=== PATIENT | female | born 1955 | race Caucasian/White ===

== ENCOUNTER → 2019-10-10 11:10 | Outpatient (CLI) | payer MEDICARE, OTHER, SELFPAY ==
--- NOTE | ~2019-10-10 | MM_ITS ---
EXAMINATION: MM screening wong BI w siri HISTORY: Screening mammogram TECHNIQUE: Craniocaudal and mediolateral oblique 3-D tomosynthesis images were obtained and synthetic 2-D images were generated. CAD analysis was submitted and interpreted. COMPARISON: 09/06/2018, 07/06/2017, 06/16/2016 bilateral digital screening mammogram examinations BREAST PARENCHYMAL COMPOSITION: There are scattered areas of fibroglandular density. FINDINGS: There is no evidence of suspicious mass, calcification, or architectural distortion to sugg est malignancy in either breast. There has been no suspicious interval change. IMPRESSION: 1. No mammographic evidence of malignancy. 2. Recommend routine screening mammography in one year. BI-RADS Category 1: Negative Reviewed, dictated and finalized at location A. 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
== END ==
PROVIDERS: PCP Family Medicine; Visit Provider Physician Assistant
DX: Z12.31 Encounter for screening mammogram for malignant neoplasm of breast (principal)
CPT/HCPCS: 77063; 77067

== ENCOUNTER → 2020-12-24 12:21 | Outpatient (CLI) | payer MEDICARE, SELFPAY ==
--- NOTE | ~2020-12-24 | MM_ITS ---
EXAMINATION: MM screening wong BI w siri HISTORY: Screening TECHNIQUE: Craniocaudal and mediolateral oblique 3-D tomosynthesis images were obtained and synthetic 2-D images were generated. CAD analysis was submitted and interpreted. COMPARISON: Comparison to multiple prior studies sequentially, with oldest reviewed study dated 09/2014. BREAST PARENCHYMAL COMPOSITION: The breasts are heterogenously dense, which may obscure small masses. FINDINGS: There is no evidence of suspicious mass, calcification, or architectural distortion to sugg est malignancy in either breast. There has been no suspicious interval change. IMPRESSION: 1. No mammographic evidence of malignancy. 2. Recommend routine screening mammography in one year. BI-RADS Category 1: Negative Reviewed, dictated and finalized at location A.
--- NOTE | ~2020-12-24 | XR_ITS ---
XR chest 2V DATE: 12/24/2020 13:58 INDICATION: Cough TECHNIQUE: PA and lateral views COMPARISON: None FINDINGS: Heart size is normal. No hilar or mediastinal enlargement. Moderate bilateral hyperinflation. No pulmonary infiltrate or consolidation, pleural effusion or pulm onary vascular congestion or pneumothorax is evident. Diffuse osteopenia. Degenerative spurring of the thoracic spine. IMPRESSION: Moderate bilateral hyperinflation Reviewed, dictated and finalized at location A.
--- NOTE | ~2020-12-24 | DEXA_ITS ---
Bone Density Report Name: Sabine Osullivan Age: 65 Sex: Female Ethnicity: White Date of : 1955 Indication: postmenopausal osteoporosis; height loss; hysterectomy; Referring Provider: LAURIE PANIAGUA Study: Bone densitometry was performed. Exam Date: December 24, 2020 Accession number: [id number] Bone Density: Region BMD T-score Z-score Classification AP Spine (L1, L3, L4) 1.011 -0.4 1.6 Normal Femoral Neck (Left) 0.480 -3.3 -1.7 Osteoporosis Total Hip (Left) 0.597 -2.8 -1.4 Osteoporosis Femoral Neck (Right) 0.433 -3.7 -2.1 Osteoporosis Total Hip (Right) 0.594 -2.9 -1.5 Osteoporosis Total Hip Mean 0.596 -2.9 -1.5 Osteoporosis World Health Organization criteria for BMD impression classify patients as: Normal (T-score at or above -1.0), Osteopenia (T-score between -1.0 and -2.5), or Osteoporosis (T-score at or below -2.5). 10-year Fracture Risk: FRAX not reported because: Some T-score for Spine Total or Hip Total or Femoral Neck at or below -2.5 Previous Exams: Region Exam Age BMD T-score BMD Change BMD Change Date g/cm2 vs Baseline vs Previous AP Spine(L1, L3, L4) 12/24/2020 65 1.011 -0.4 0.137* -0.010 06/11/2015 60 1.022 -0.3 0.148* 0.148* 05/29/2008 53 0.874 -1.6 Total Hip(Left) 12/24/2020 65 0.597 -2.8 -0.061* -0.041* 06/11/2015 60 0.638 -2.5 -0.020 -0.020 05/29/2008 53 0.658 -2.3 Total Hip(Right) 12/24/2020 65 0.594 -2.9 -0.063* -0.008 06/11/2015 60 0.602 -2.8 -0.055* -0.055* 05/29/2008 53 0.657 -2.3 *Denotes significance at 95% confidence level, LSC for AP Spine = 0.022 g/cm2, LSC for Total Hip = 0.027 g/cm2 Clinical Information Provided by Patient: Has used the following medications: Calcium, calcium includes vit D, MTV Has the following medical conditions: Hysterectomy Patient maximum height was 59 Menopause Age: 26 Does not regularly consume dairy products Onset of menses at age 12 Number of children 1 Impression: The patient has osteoporosis, based on the Right Femoral Neck T-score. The BMD for the Total Hip(Left) decreased, changing by -0.041 since the last DXA exam. Discussion: HIGH RISK OF FRACTURE. BONE DENSITY IS UNDESIRABLY LOW AT ONE OR MORE SKELETAL SITES, CONSISTENT WITH OSTEOPOROSIS. ALSO, BONE DENSITY IS LOWER THAN EXPECTED FOR AGE AND SEX AT ONE OR MORE SKELETAL SITES; RECOMMEND A DILIGENT
== END ==
PROVIDERS: PCP Family Medicine; Visit Provider Family Medicine
DX: Z12.31 Encounter for screening mammogram for malignant neoplasm of breast (principal); Z78.0 Asymptomatic menopausal state; R05 Cough; M81.0 Age-related osteoporosis without current pathological fracture; R91.8 Other nonspecific abnormal finding of lung field
CPT/HCPCS: 71046; 77063; 77067; 77080

== ENCOUNTER 2020-12-26 11:51 | Outpatient (CLI) | payer MEDICARE, SELFPAY ==
[2020-12-26 12:07] LABS: Basophils Absolute Auto 0.1 K/mm3 (0.0-0.1); Basophils Percent Auto 0.7 % (0.2-1.2); Eosinophils Absolute Auto 0.2 K/mm3 (0-0.3); Eosinophils Percent Auto 1.8 % (0-4.4); Hematocrit 31.9 % (37.0-47.0); Immature Granulocyte Absolute 0.04 K/mm3 (0.00-0.031); Immature Granulocyte Percent A 0.4 % (0-0.5); Lymphocytes Absolute Auto 1.71 K/mm3 (0.9-3.2); Lymphocytes Percent Auto 17.8 % (18.3-44.2); Mean Corpuscular HGB Conc 28.2 g/dl (32-36); Mean Corpuscular Hemoglobin 19.7 pg (26-34); Mean Corpuscular Volume 69.7 fl (80-100); Mean Platelet Volume 9.9 fl (7.4-10.4); Monocytes Absolute Auto 0.5 K/mm3 (0.1-0.6); Monocytes Percent Auto 5.1 % (2.6-8.5); Neutrophils Absolute Auto 7.2 K/mm3 (1.3-6.7); Neutrophils Percent Auto 74.2 % (45.5-73.1); Platelet Count Result 679 k/mm3 (150-375); Red Blood Count 4.58 M/mm3 (4.2-5.4); White Blood Count 9.6 K/mm3 (4.5-10.0)
[2020-12-26 12:24] LABS: Platelet Estimate Increased (Adequate)
[2020-12-26 12:25] LABS: Hypochromasia 1+ (NORMAL); Ovalocytes 1+ (NORMAL); Poikilocytosis 1+ (NORMAL)
[2020-12-26 16:46] LABS: Iron 37 ug/dL (37-170)
[2020-12-26 16:48] LABS: Alanine Aminotransferase 13 U/L (4-35); Albumin Level 4.4 g/dL (3.5-5.1); Alkaline Phosphatase 79 U/L (38-126); Anion Gap 7 mmol/L (8-16); Aspartate Amino Transferase 29 U/L (14-36); Bilirubin,Total 0.4 mg/dL (0.2-1.3); Blood Urea Nitrogen 10 mg/dL (7-17); Calcium 10.1 mg/dL (8.4-10.2); Carbon Dioxide 26 mmol/L (22-30); Chloride 110 mmol/L (98-107); Estimated Glomerular Filt Rate > 60; Glucose 97 mg/dL (65-105); Potassium 4.8 mmol/L (3.4-5.0); Sodium 143 mmol/L (137-145)
[2020-12-26 16:57] LABS: Percent Iron Saturation 7 % (20-50)
[2020-12-26 17:22] LABS: Ferritin 6.83 ng/mL (11.1-264)
[2020-12-26 18:00] LABS: Folic Acid 11.6 ng/mL (2.76->20)
== END 2020-12-26 11:52 | disposition home or self-care (01) ==
PROVIDERS: PCP Family Medicine; Visit Provider Internal Medicine Hematology & Oncology
DX: D50.9 Iron deficiency anemia, unspecified (principal)
CPT/HCPCS: 36415; 80053; 82607; 82728; 82746; 83540; 83550; 85025

== ENCOUNTER 2020-12-31 13:57 | Outpatient (CLI) | payer MEDICARE, SELFPAY ==
--- NOTE | ~2020-12-31 | CT_ITS ---
EXAMINATION: CT abdomen pelvis w con DATE: 12/31/2020 14:36 INDICATION: Anemia. Abdomen pain. TECHNIQUE: Computed tomography (CT) of the abdomen and pelvis was performed with 90 cc Omnipaque 350 intravenous contrast. The dose-length product was 158.80 mGy-cm. Automated exposure control and itera tive reconstruction technique were employed. COMPARISON: None. FINDINGS: Lung bases are unremarkable. Heart size normal. No significant pleural or pericardial effus ion. There is atherosclerosis of the aorta without aneurysm. Small hiatal hernia. No lymphadenopathy. There are small bilateral renal cysts. The liver, spleen, pancreas, adrenal glands are unremarkable. Nonobstructive bowel gas pattern. Gallbladder is present. No free air or free fluid. Severe lumbar s pondylosis. Scoliosis. No acute osseous abnormality. IMPRESSION: 1. No acute abdominal abnormality. Reviewed, dictated and finalized at location A.
== END 2020-12-31 13:58 | disposition home or self-care (01) ==
PROVIDERS: PCP Family Medicine; Visit Provider Internal Medicine Hematology & Oncology
DX: D50.9 Iron deficiency anemia, unspecified (principal); R10.30 Lower abdominal pain, unspecified; K44.9 Diaphragmatic hernia without obstruction or gangrene; N28.1 Cyst of kidney, acquired; M47.816 Spondylosis without myelopathy or radiculopathy, lumbar region
CPT/HCPCS: 74177; Q9967

== ENCOUNTER 2021-02-04 00:45 | Day surgery (SDC) | payer MEDICARE, SELFPAY ==
[2021-01-18 13:56] VITALS: BMI 20.1
[2021-02-04 08:54] VITALS: BP 131/56; PULSE 56; RESP 18; TEMP 36.3; O2SAT 99
[2021-02-04] MEDS: LACTATED RINGERS 1,000 ML 150 ML IV CONT (09:10)
--- NOTE | 2021-02-04 09:11 | WPDANESEPPF ---
Anes - Initial Pre Proc Eval Procedure: Operation Date: 02/04/21 09:30 Proposed Procedures p Esophagogastroduodenoscopy & Colonoscopy - Abebe Hernandez MD Date/Time: 02/04/21 09:11 Surgeon: Abebe Hernandez MD Pre Op Diagnosis: dysphagia, Iron Def anemia Patient Data Age: 65 Gender: F Height: 1.45 m Weight: 41.2 kg Last Vital Signs Temp 97.4 F L 02/04/21 08:54 Pulse 56 L 02/04/21 08:54 Resp 18 02/04/21 08:54 BP 131/56 L 02/04/21 08:54 Pulse Ox 99 02/04/21 08:54 Allergies Allergy/AdvReac Type Severity Reaction Status Date / Time lisinopril Allergy Unknown cough Verified 02/04/21 08:53 rosuvastatin Allergy Unknown leg pain Verified 02/04/21 08:53 Home Medications Medication Instructions Recorded Confirmed Type naproxen 500 mg tablet See Rx Instructions .ROUTE 11/07/19 01/18/21 Rx .COMPLEX #60 tablet ergocalciferol (vitamin D2) 1,250 1,250 mcg PO WEEKLY #12 cap 12/06/20 01/18/21 Rx mcg (50,000 unit) capsule atorvastatin 10 mg tablet See Rx Instructions .ROUTE 12/17/20 01/18/21 Rx .COMPLEX #90 tablet hydrochlorothiazide 25 mg tablet See Rx Instructions .ROUTE 12/17/20 01/18/21 Rx .COMPLEX #90 tablet linaclotide 145 mcg capsule 145 mcg PO DAILY #90 cap 12/17/20 01/18/21 Rx metoprolol succinate 50 mg See Rx Instructions .ROUTE 12/17/20 01/18/21 Rx tablet,extended release 24 hr .COMPLEX #90 tablet omeprazole 20 mg capsule,delayed See Rx Instructions .ROUTE 12/17/20 01/18/21 Rx release .COMPLEX #90 cap tramadol 50 mg tablet 50 mg PO Q6H PRN #90 tablet 12/17/20 01/18/21 Rx trazodone 100 mg tablet See Rx Instructions .ROUTE 12/17/20 01/18/21 Rx .COMPLEX #135 tablet cyclobenzaprine 10 mg tablet 10 mg PO TID #60 tablet 01/15/21 01/18/21 Rx alendronate [Fosamax] 70 mg PO WEEKLY 01/18/21 01/18/21 History sertraline [Zoloft] 150 mg .ROUTE .COMPLEX 01/18/21 01/18/21 History Patient hx anesthesia problems: none Family hx anesthesia problems: none [facility] Past Medical History Medical History Depression HLD (hyperlipidemia) Hypertension IBS (irritable bowel syndrome) Normal colonoscopy (~2018) Surgical History Surgical History H/O: hysterectomy Family History Family History Father Hypertension Family history of diabetes mellitus in first degree relative Family history of hearing loss Patient's father is Mother Hypertension Patient's mother is Grandparent Asthma Sibling Patient's sister is in good health Patient's brother is in good health Other Cerebrovascular accident Family history of cardiovascular disease Family history of seizure disorder Social History Social History Second hand tobacco smoke exposure: No Alcohol intake: never Substance use type: does not use Living arrangements: with family Gender identity (if verbalized by the patient): Female Anes - Eval Final PreProcedure Day of Procedure 02/04/21 09:11 Patient weight: normal Heart: regular rate and rhythm Lungs: clear to auscultation Airway: Mallampati scale class II Neurological: alert and oriented Last oral intake: >/= 8 hours ASA classification: III Emergent: no Anesthetic plan: proceed Anesthesia type and monitoring: general GIVS and standard monitoring Informed Consent: The patient's anesthetic plan and its attendant risks and benefits were discussed with the patient/family/POA. Questions were solicited and answers provided to the satisfaction of the patient/family/POA.
--- NOTE | 2021-02-04 09:17 | WPDGICN ---
Assessment and Plan Assessment and plan (1) ROLANDO (iron deficiency anemia): Code(s): D50.9 - Iron deficiency anemia, unspecified Status: Acute Assessment and Plan: Patient has iron deficient anemia. Etiology unclear. She is currently followed by hematology service. Plan is to proceed with colonoscopy an EGD to assess for possible GI blood loss. Stool Hemoccult should be obtained if not already accomplished. It is possible that ppi therapy can contribute to iron malabsorption. (2) Dysphagia: Code(s): R13.10 - Dysphagia, unspecified Status: Acute Assessment and Plan: Patient reports difficulty swallowing. She does have a history of esophageal web 3-4 years ago. Plan is to assess with follow-up EGD at this time. (3) Epigastric abdominal pain: Code(s): R10.13 - Epigastric pain Status: Acute Assessment and Plan: Patient has epigastric and mid abdominal pain. Currently on omeprazole 20 mg p.o. daily. She continues to have discomfort. Plan is to evaluate with EGD and colonoscopy. Consider increasing dose of PPI therapy antrum. GI Consult Note Consult date/time: 02/04/21 09:17 HPI: Sabine Osullivan is a 65 year old female Presents for GI endoscopy. Patient recently found to have iron deficiency anemia. She was referred to Hematology who has recommended both colonoscopy an EGD. Patient reports difficulty swallowing with large pieces of food catching at throat. Patient has a history 3 years ago of having had esophageal web requiring dilatation. She currently takes omeprazole daily. However despite this medication continues to have burning epigastric discomfort. She states she has discomfort the middle portion of her abdomen. Over the last 6 months she states she may have lost 17 lb. But has begun to gain weight and has gained 7 lb over recent months. Patient states that her bowel habits are normal. She denies any obvious signs of GI blood loss. She has had no change in the color of her stools. She has no had no bleeding elsewhere. She has had no nose bleeds. No other bruising. Her family history is noncontributory. Review of Systems Review of Systems: All systems reviewed & are unremarkable except as noted in HPI and below PMFSH Past Medical History Medical History Depression HLD (hyperlipidemia) Hypertension IBS (irritable bowel syndrome) Normal colonoscopy (~2018) Surgical History Surgical History H/O: hysterectomy Family History Family History Father Hypertension Family history of diabetes mellitus in first degree relative Family history of hearing loss Patient's father is Mother Hypertension Patient's mother is Grandparent Asthma Sibling Patient's sister is in good health Patient's brother is in good health Other Cerebrovascular accident Family history of cardiovascular disease Family history of seizure disorder Social History Social History Second hand tobacco smoke exposure: No Alcohol intake: never Substance use type: does not use Living arrangements: with family Gender identity (if verbalized by the patient): Female Meds Home Medications and Allergies Home Medications Medication Instructions Recorded Confirmed Type naproxen 500 mg tablet See Rx Instructions .ROUTE 11/07/19 01/18/21 Rx .COMPLEX #60 tablet ergocalciferol (vitamin D2) 1,250 1,250 mcg PO WEEKLY #12 cap 12/06/20 01/18/21 Rx mcg (50,000 unit) capsule atorvastatin 10 mg tablet See Rx Instructions .ROUTE 12/17/20 01/18/21 Rx .COMPLEX #90 tablet hydrochlorothiazide 25 mg tablet See Rx Instructions .ROUTE 12/17/20 01/18/21 Rx .COMPLEX #90 tablet linaclotide 14
[2021-02-04] MEDS: BENZOCAINE (*SP) 60 ML SPRAY CAN (HURRICAINE) 1 SPRAY MUCOUS MEM (09:41)
[2021-02-04 10:13] VITALS: BP 98/49; PULSE 63; RESP 16; O2SAT 98
[2021-02-04 10:23] VITALS: BP 112/69; PULSE 63; RESP 24; O2SAT 100
[2021-02-04 10:33] VITALS: BP 123/67; PULSE 59; RESP 17; O2SAT 100
== END 2021-02-04 10:49 | disposition home or self-care (01) ==
PROVIDERS: PCP Family Medicine; Visit Provider Internal Medicine Gastroenterology
PROC: 0DJ08ZZ Inspection of Upper Intestinal Tract, Via Natural or Artificial Opening Endoscopic (ICD-10-PCS; CPT 43235; principal; 2021-02-04 09:30)
DX: D50.9 Iron deficiency anemia, unspecified (principal); R13.19 Other dysphagia; R10.13 Epigastric pain; K44.9 Diaphragmatic hernia without obstruction or gangrene; K22.2 Esophageal obstruction; K21.00 Gastro-esophageal reflux disease with esophagitis, without bleeding; F32.9 Major depressive disorder, single episode, unspecified; E78.5 Hyperlipidemia, unspecified; I10 Essential (primary) hypertension; K58.9 Irritable bowel syndrome, unspecified
CPT/HCPCS: 45378; 43450; J2704; J7120

== ENCOUNTER 2022-05-05 13:50 | Outpatient (CLI) | payer MEDICARE, SELFPAY ==
[2022-05-05 14:19] LABS: Hematocrit 32.2 % (37.0-47.0); Hemoglobin 9.1 g/dL (12.0-15.0); Mean Corpuscular HGB Conc 28.3 g/dl (32-36); Mean Corpuscular Hemoglobin 20.9 pg (26-34); Mean Platelet Volume 9.5 fl (7.4-10.4); Platelet Count Result 627 k/mm3 (150-375); Red Blood Count 4.35 M/mm3 (4.2-5.4); Red Cell Distribution Width 19.5 % (11.5-14.5); White Blood Count 9.1 K/mm3 (4.5-10.0)
[2022-05-05 16:35] LABS: Iron 22 ug/dL (37-170)
[2022-05-05 16:48] LABS: Percent Iron Saturation 4 % (20-50)
[2022-05-05 17:15] LABS: Ferritin 6.67 ng/mL (11.1-264)
== END 2022-05-05 13:51 | disposition home or self-care (01) ==
LOC: ANHLAB 13:52
PROVIDERS: PCP Family Medicine; Visit Provider Internal Medicine Hematology & Oncology
DX: D50.9 Iron deficiency anemia, unspecified (principal)
CPT/HCPCS: 36415; 82607; 82728; 83540; 83550; 85027

== ENCOUNTER → 2022-05-12 11:47 | Outpatient (CLI) | payer MEDICARE, SELFPAY ==
--- NOTE | ~2022-05-12 | MM_ITS ---
EXAMINATION: MM screening [facility] BI w siri HISTORY: Screening mammogram TECHNIQUE: Craniocaudal and mediolateral oblique 3-D tomosynthesis images were obtained and synthetic 2-D images were generated. CAD analysis was submitted and interpreted. COMPARISON: 12/24/2020, 10/10/2019, 08/29/2018 BREAST PARENCHYMAL COMPOSITION: There are scattered areas of fibroglandular density. FINDINGS: There is no suspicious mass, calcification, or architectural distortion to suggest malignan cy in either breast. There has been no suspicious interval change. IMPRESSION: 1. No mammographic evidence of malignancy. 2. Recommend routine screening mammography in one year. BI-RADS Category 1: Negative Reviewed, dictated and finalized at location A.
== END ==
PROVIDERS: PCP Family Medicine; Visit Provider Family Medicine
DX: Z12.31 Encounter for screening mammogram for malignant neoplasm of breast (principal)
CPT/HCPCS: 77063; 77067

== ENCOUNTER 2023-06-24 13:33 | Outpatient (CLI) | payer MEDICARE, SELFPAY ==
[2023-06-24 13:58] LABS: Basophils Absolute Auto 0.1 K/mm3 (0.0-0.1); Basophils Percent Auto 0.7 % (0.2-1.2); Eosinophils Absolute Auto 0.1 K/mm3 (0-0.3); Eosinophils Percent Auto 1.2 % (0-4.4); Hematocrit 35.6 % (37.0-47.0); Hemoglobin 11.5 g/dL (12.0-15.0); Immature Granulocyte Absolute 0.04 K/mm3 (0.00-0.031); Immature Granulocyte Percent A 0.4 % (0-0.5); Lymphocytes Absolute Auto 1.99 K/mm3 (0.9-3.2); Mean Corpuscular HGB Conc 32.3 g/dl (32-36); Mean Corpuscular Hemoglobin 28.9 pg (26-34); Mean Corpuscular Volume 89.4 fl (80-100); Mean Platelet Volume 9.3 fl (7.4-10.4); Monocytes Absolute Auto 0.5 K/mm3 (0.1-0.6); Monocytes Percent Auto 5.3 % (2.6-8.5); Neutrophils Absolute Auto 6.4 K/mm3 (1.3-6.7); Neutrophils Percent Auto 70.4 % (45.5-73.1); Platelet Count Result 596 k/mm3 (150-375); Red Blood Count 3.98 M/mm3 (4.2-5.4); Red Cell Distribution Width 15.5 % (11.5-14.5); White Blood Count 9.1 K/mm3 (4.5-10.0)
[2023-06-24 14:03] LABS: Blood Urea Nitrogen 17 mg/dL (8-26); Carbon Dioxide 24 mmol/L (22-30); Chloride 106 mmol/L (98-109); Estimated Glomerular Filt Rate 14; Glucose 114 mg/dL (70-105); Ionized Calcium (POC) 1.17 mmol/L (1.11-1.31); Sodium 139 mmol/L (138-146)
[2023-06-24 16:45] LABS: Alanine Aminotransferase 13 U/L (6-35); Albumin Level 4.5 g/dL (3.5-5.1); Alkaline Phosphatase 92 U/L (38-126); Anion Gap 15 mmol/L (8-16); Aspartate Amino Transferase 25 U/L (14-36); Bilirubin,Total 0.6 mg/dL (0.2-1.3); Blood Urea Nitrogen 14 mg/dL (7-17); Calcium 10.5 mg/dL (8.4-10.2); Carbon Dioxide 24 mmol/L (22-30); Chloride 103 mmol/L (98-107); Cholesterol 212 mg/dL (0-200); Estimated Glomerular Filt Rate > 60; Glucose 99 mg/dL (65-110); HDL Direct 52 mg/dL; Potassium 4.5 mmol/L (3.4-5.0); Sodium 142 mmol/L (137-145); Triglycerides 161 mg/dL (<150)
[2023-06-24 16:56] LABS: LDL Cholesterol Direct 102 mg/dL
[2023-06-24 17:04] LABS: Hemoglobin A1C 5.3 % (<5.7)
== END 2023-06-24 13:34 | disposition home or self-care (01) ==
LOC: ANHLAB 13:36
PROVIDERS: PCP Family Medicine; Visit Provider Internal Medicine Hematology & Oncology
DX: R73.9 Hyperglycemia, unspecified (principal); E78.2 Mixed hyperlipidemia; R53.83 Other fatigue; I10 Essential (primary) hypertension
CPT/HCPCS: 36415; 80047; 80053; 80061; 83036; 84443; 85025

== ENCOUNTER 2023-06-29 10:31 | Outpatient (CLI) | payer MEDICARE, SELFPAY ==
[2023-06-29 11:28] LABS: Parathyroid Intact 28.6 pg/mL (7.5-53.5)
[2023-07-01 15:56] LABS: Ionized Calcium 5.1 mg/dL (4.7-5.5)
== END 2023-06-29 10:32 | disposition home or self-care (01) ==
PROVIDERS: PCP Family Medicine; Visit Provider Physician Assistant
DX: E83.52 Hypercalcemia (principal)
CPT/HCPCS: 36415; 82330; 83970

== ENCOUNTER → 2023-10-08 12:28 | Outpatient (CLI) | payer MEDICARE, SELFPAY ==
--- NOTE | ~2023-10-08 | MM_ITS ---
EXAMINATION: MM screening wong BI w siri HISTORY: Screening TECHNIQUE: Craniocaudal and mediolateral oblique 3-D tomosynthesis images were obtained and synthetic 2-D images were generated. CAD analysis was submitted and interpreted. COMPARISON: Comparison to multiple prior studies sequentially, with oldest reviewed study dated 02/2016. BREAST PARENCHYMAL COMPOSITION: Dense: The breasts are heterogeneously dense, which may obscure small masses FINDINGS: There is no evidence of suspicious mass, calcification, or architectural distortion to sugg est malignancy in either breast. There has been no suspicious interval change. IMPRESSION: 1. No mammographic evidence of malignancy. 2. Recommend routine screening mammography in one year. BI-RADS Category 1: Negative Reviewed, dictated and finalized at location A. BUSHELER
== END ==
PROVIDERS: PCP Internal Medicine Hematology & Oncology; Visit Provider Family Medicine
DX: Z12.31 Encounter for screening mammogram for malignant neoplasm of breast (principal)
CPT/HCPCS: 77063; 77067

== ENCOUNTER 2023-12-11 12:44 | Outpatient (CLI) | payer MEDICARE, SELFPAY ==
--- NOTE | ~2023-12-11 | US_ITS ---
US renal BI 12/11/2023 13:12 Procedure: Realtime transabdominal ultrasound of the kidneys and bladder. Indication: Chronic kidney disease stage III Comparison: No prior studies for comparison. Findings: Renal echotexture is normal bilaterally without hydronephrosis, contour deforming mass or r enal calculus. The right kidney measures 8.5 cm and left kidney measures 8.7 cm. Bladder within norm al limits. Impression: 1: Unremarkable renal ultrasound. No stones, masses or hydronephrosis. Reviewed, dictated and finalized at location B. Impression: 1: Unremarkable renal ultrasound. No stones, masses or hydronephrosis.
== END 2023-12-11 12:45 ==
LOC: MICIMG 12:45
PROVIDERS: PCP Family Medicine; Visit Provider Family Medicine
DX: N18.30 Chronic kidney disease, stage 3 unspecified (principal)
CPT/HCPCS: 76775

== ENCOUNTER 2024-01-29 10:07 | Outpatient (CLI) | payer MEDICARE, SELFPAY ==
[2024-01-29 10:19] LABS: Basophils Absolute Auto 0.1 K/mm3 (0.0-0.1); Eosinophils Absolute Auto 0.1 K/mm3 (0-0.3); Hematocrit 38.1 % (37.0-47.0); Hemoglobin 12.1 g/dL (12.0-15.0); Immature Granulocyte Absolute 0.02 K/mm3 (0.00-0.031); Immature Granulocyte Percent A 0.4 % (0-0.5); Lymphocytes Absolute Auto 1.69 K/mm3 (0.9-3.2); Lymphocytes Percent Auto 33.9 % (18.3-44.2); Mean Corpuscular HGB Conc 31.8 g/dl (32-36); Mean Corpuscular Hemoglobin 28.4 pg (26-34); Mean Corpuscular Volume 89.4 fl (80-100); Mean Platelet Volume 9.4 fl (7.4-10.4); Monocytes Absolute Auto 0.3 K/mm3 (0.1-0.6); Monocytes Percent Auto 6.4 % (2.6-8.5); Neutrophils Absolute Auto 2.9 K/mm3 (1.3-6.7); Neutrophils Percent Auto 57.3 % (45.5-73.1); Platelet Count Result 479 k/mm3 (150-375); Red Blood Count 4.26 M/mm3 (4.2-5.4); Red Cell Distribution Width 16.4 % (11.5-14.5)
[2024-01-29 10:28] LABS: Blood Urea Nitrogen 28 mg/dL (8-26); Carbon Dioxide 25 mmol/L (22-30); Chloride 106 mmol/L (98-109); Estimated Glomerular Filt Rate 7; Glucose 134 mg/dL (70-105); Ionized Calcium (POC) 1.25 mmol/L (1.11-1.31); Potassium 3.7 mmol/L (3.5-4.9); Sodium 140 mmol/L (138-146)
[2024-01-29 13:42] LABS: Anion Gap 10 mmol/L (4-12); Blood Urea Nitrogen 28 mg/dL (7-17); Carbon Dioxide 22 mmol/L (22-30); Chloride 107 mmol/L (98-107); Estimated Glomerular Filt Rate 55; Glucose 96 mg/dL (65-110); Potassium 3.6 mmol/L (3.4-5.0); Sodium 139 mmol/L (137-145)
== END 2024-01-29 10:08 | disposition home or self-care (01) ==
LOC: ANHLAB 10:10
PROVIDERS: PCP Family Medicine; Visit Provider Internal Medicine Hematology & Oncology
DX: D47.3 Essential (hemorrhagic) thrombocythemia (principal)
CPT/HCPCS: 36415; 80047; 80048; 85025

== ENCOUNTER 2024-02-26 11:23 | Outpatient (CLI) | payer MEDICARE, SELFPAY ==
--- NOTE | ~2024-02-26 | XR_ITS ---
XR shoulder LT min 2V 02/26/2024 12:02 INDICATION: Left shoulder pain PROCEDURE: 4 views left shoulder COMPARISON: No prior studies for comparison. FINDINGS: Fracture, dislocation or subluxation is not identified. Osteopenia. The soft tissues appear within normal limits. No foreign bodies are identified. IMPRESSION: 1: NO ACUTE BONE OR JOINT ABNORMALITY IDENTIFIED. Reviewed, dictated and finalized at location B.
== END 2024-02-26 11:24 ==
PROVIDERS: PCP Family Medicine; Visit Provider Family Medicine
DX: M25.512 Pain in left shoulder (principal)
CPT/HCPCS: 73030

== ENCOUNTER 2024-06-03 08:46 | Outpatient (CLI) | payer MEDICARE, SELFPAY ==
[2024-06-03 09:01] LABS: Basophils Absolute Auto 0.1 K/mm3 (0.0-0.1); Basophils Percent Auto 1.6 % (0.2-1.2); Eosinophils Absolute Auto 0.1 K/mm3 (0-0.3); Hematocrit 30.3 % (37.0-47.0); Hemoglobin 8.8 g/dL (12.0-15.0); Immature Granulocyte Absolute 0.01 K/mm3 (0.00-0.031); Immature Granulocyte Percent A 0.2 % (0-0.5); Lymphocytes Absolute Auto 1.72 K/mm3 (0.9-3.2); Lymphocytes Percent Auto 31.3 % (18.3-44.2); Mean Corpuscular Hemoglobin 24.6 pg (26-34); Mean Corpuscular Volume 84.9 fl (80-100); Mean Platelet Volume 9.1 fl (7.4-10.4); Monocytes Absolute Auto 0.4 K/mm3 (0.1-0.6); Monocytes Percent Auto 7.8 % (2.6-8.5); Neutrophils Absolute Auto 3.1 K/mm3 (1.3-6.7); Neutrophils Percent Auto 57.1 % (45.5-73.1); Platelet Count Result 190 k/mm3 (150-375); Red Blood Count 3.57 M/mm3 (4.2-5.4); Red Cell Distribution Width 19.2 % (11.5-14.5); White Blood Count 5.5 K/mm3 (4.5-10.0)
[2024-06-03 09:06] LABS: Blood Urea Nitrogen 16 mg/dL (8-26); Carbon Dioxide 25 mmol/L (22-30); Chloride 106 mmol/L (98-109); Estimated Glomerular Filt Rate 8; Glucose 123 mg/dL (70-105); Ionized Calcium (POC) 1.24 mmol/L (1.11-1.31); Potassium 4.3 mmol/L (3.5-4.9); Sodium 142 mmol/L (138-146)
[2024-06-03 09:09] LABS: Anisocytosis 1+; Hypochromasia 1+; Microcytosis 1+ (NORMAL); Platelet Estimate Adequate (Adequate); Schistocytes None Seen
[2024-06-03 13:35] LABS: Iron 25 ug/dL (37-170)
[2024-06-03 13:45] LABS: Percent Iron Saturation 5 % (20-50)
[2024-06-03 14:12] LABS: Ferritin 6.63 ng/mL (11.1-264)
== END 2024-06-03 08:47 | disposition home or self-care (01) ==
PROVIDERS: PCP Family Medicine; Visit Provider Internal Medicine Hematology & Oncology
DX: D64.9 Anemia, unspecified (principal); D47.3 Essential (hemorrhagic) thrombocythemia
CPT/HCPCS: 36415; 80047; 82607; 82728; 83540; 83550; 85025

== ENCOUNTER 2024-06-24 12:59 | Outpatient (CLI) | payer MEDICARE, SELFPAY ==
[2024-06-24 13:10] LABS: Basophils Absolute Auto 0.1 K/mm3 (0.0-0.1); Basophils Percent Auto 1.2 % (0.2-1.2); Eosinophils Absolute Auto 0.1 K/mm3 (0-0.3); Hematocrit 30.4 % (37.0-47.0); Hemoglobin 8.6 g/dL (12.0-15.0); Immature Granulocyte Absolute 0.01 K/mm3 (0.00-0.031); Immature Granulocyte Percent A 0.2 % (0-0.5); Lymphocytes Percent Auto 27.6 % (18.3-44.2); Mean Corpuscular HGB Conc 28.3 g/dl (32-36); Mean Corpuscular Hemoglobin 23.4 pg (26-34); Mean Corpuscular Volume 82.8 fl (80-100); Mean Platelet Volume 8.4 fl (7.4-10.4); Monocytes Absolute Auto 0.5 K/mm3 (0.1-0.6); Monocytes Percent Auto 8.9 % (2.6-8.5); Neutrophils Absolute Auto 3.1 K/mm3 (1.3-6.7); Neutrophils Percent Auto 61.1 % (45.5-73.1); Platelet Count Result 413 k/mm3 (150-375); Red Blood Count 3.67 M/mm3 (4.2-5.4); Red Cell Distribution Width 19.9 % (11.5-14.5); White Blood Count 5.1 K/mm3 (4.5-10.0)
[2024-06-24 13:13] LABS: Platelet Estimate Increased (Adequate)
[2024-06-24 13:14] LABS: Anisocytosis 1+; Hypochromasia 1+; Microcytosis 1+ (NORMAL); Ovalocytes 1+; Poikilocytosis 1+; Schistocytes None Seen
== END 2024-06-24 13:00 | disposition home or self-care (01) ==
LOC: ANHLAB 13:00
PROVIDERS: PCP Family Medicine; Visit Provider Internal Medicine Hematology & Oncology
DX: D64.9 Anemia, unspecified (principal)
CPT/HCPCS: 36415; 85025

== ENCOUNTER 2025-02-17 13:28 | Outpatient (CLI) | payer MEDICARE, SELFPAY ==
--- NOTE | ~2025-02-17 | MM_ITS ---
EXAMINATION: MM screening wong BI w siri HISTORY: Screening TECHNIQUE: Craniocaudal and mediolateral oblique 3-D tomosynthesis images were obtained and synthetic 2-D images were generated. CAD analysis was submitted and interpreted. COMPARISON: Comparison to multiple prior studies sequentially, with oldest reviewed study dated 06/11. BREAST PARENCHYMAL COMPOSITION: Not dense: There are scattered areas of fibroglandular density. FINDINGS: There is no evidence of suspicious mass, calcification, or architectural distortion to sugg est malignancy in either breast. There has been no suspicious interval change. IMPRESSION: 1. No mammographic evidence of malignancy. 2. Recommend routine screening mammography in one year. BI-RADS Category 1: Negative Reviewed, dictated and finalized at location B.
== END 2025-02-17 13:29 | disposition home or self-care (01) ==
LOC: MICIMG 13:28
PROVIDERS: PCP Family Medicine; Visit Provider Family Medicine
DX: Z12.31 Encounter for screening mammogram for malignant neoplasm of breast (principal)
CPT/HCPCS: 77063; 77067

== ENCOUNTER 2025-04-21 12:45 | Outpatient (CLI) | payer MEDICARE, SELFPAY ==
--- OUTSIDE RECORDS SUMMARY | 2025-04-21 13:26 | XMS_ITS | Clinical Summary ---
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 This disclosure is being madepursuant to the Care Everywhere program and may not contain all information available regarding this patient. Last updated 18.[facility] Allergies Active Allergy Reactions Criticality Noted Date Comments Hydrocodone-Acetaminophen Nausea and/or Vomiting 03/10/2024 Oxycodone Nausea and/or Vomiting 03/10/2024 Medications * Be aware that medications may not be up to date on this document. Alwaysverify current medications with the patient. acetaminophen (Tylenol) 500 MG tablet Take 1 (one) tablet by mouth every 4 hours as needed for Fever or Pain Maximum allowable Acetaminophen amount = 4 Grams (4000 mg) / 24 hours. 20 tablet 4 Active ibuprofen (Motrin) 600 MG tablet Take 1 (one) tablet by mouth every 6 hours as needed for Pain 30 tablet 4 Active Social History Tobacco Use Types Packs/Day Years Used Date Smoking Tobacco: Never Assessed Comments Unknown Sex and Gender Information Value Date Recorded Sex Assigned at Not on file Legal Sex Female 7:33 PM CDT Gender Identity Not on file Sexual Orientation Not on file Last Filed Vital Signs Vital Sign Reading Time Taken Comments Blood Pressure 132/68 03/11/2024 7:00 AM CDT Pulse 80 03/11/2024 7:00 AM CDT Temperature 36.8 C (98.2 F) 03/10/2024 7:47 PM CDT Respiratory Rate 15 03/11/2024 7:00 AM CDT Oxygen Saturation 94% 03/11/2024 7:00 AM CDT Inhaled Oxygen Concentration - - Weight - - Height - - Body Mass Index - - Plan of Treatment Health Maintenance Due Date Last Done Comments BONE DENSITY TESTING 1955 COLOGUARD (AGES 45-75) - COL ON CA SCREENING 1955 COLON MONITORING 1955 COLONOSCOPY - COLON CA SCREENING 1955 CT COLONOGRAPHY - COLON CA SCREENING 1955 Colorectal Cancer Screening 1955 FIT - COLON CA SCREENING 1955 FLEX SIG - COLON CA SCREENING 1955 LIPID TESTING 1955 HEPATITIS C SCREENING 02/18/1971 DTAP/TDAP/TD VACCINES (1 - Tdap) 02/23/1972 PNEUMOCOCCAL VACCINE 50+ (1 of 1 - PCV) 2003 ZOSTER VACCINE (1 of 2) 2003 COVID-19 VACCINE (1 - 2023-2 5 season) 2024 DEPRESSION SCREENING 08/10/2024 MEDICARE AWV CALENDAR YEAR 2024 INFLUENZA VACCINE (#1) 2025 MAMMOGRAM 10/07/2025 10/08/2023 Respiratory Syncytial Virus (RSV) Vaccine Pt: or over 60 yrs (1 - 1-dose 75+ series) 02/23/2028 HEPATITIS B VACCINE Aged Out No longe r eligible based on patient's age to complete this topic HIB VACCINE Aged Out No longer eligi ble based on patient's age to complete this topic HPV VACCINE Aged Out No longer eligi ble based on patient's age to complete this topic MENINGOCOCCAL (Group B) VACC INE SHARED DECISION-MAKING Aged Out No longer eligibl e based on patient's age to complete this topic MENINGOCOCCAL GROUPS A/C/Y/W VACCINE Aged Out No longer eligible b ased on patient's age to complete this topic Insurance [employer] MEDICARE ADV Care Teams Software Reverse Engineer Relationship Specialty Start Date End Date Pcp, None [address] [place] [address] PCP - General 03/10/24
== END 2025-04-21 12:46 | disposition home or self-care (01) ==
LOC: ANHAUDIO 12:46
PROVIDERS: PCP Student in an Organized Health Care Education/Training Program; Visit Provider Otolaryngology
DX: H90.3 Sensorineural hearing loss, bilateral (principal); H93.13 Tinnitus, bilateral; H92.03 Otalgia, bilateral; J32.9 Chronic sinusitis, unspecified
CPT/HCPCS: 92557; 92567

== ENCOUNTER 2025-07-19 14:46 | Emergency (ER) | payer MEDICARE, SELFPAY ==
--- NOTE | ~2025-07-19 | CT_ITS ---
EXAMINATION: CT abdomen pelvis w con DATE: 07/19/2025 17:10 INDICATION: 70-year-old with lower abdominal pain nausea and TECHNIQUE: Computed tomography (CT) of the abdomen and pelvis was performed 100 cc of intravenous contrast. Automated exposure control and iterative reconstruction technique were employed. The dose-length product was 149.26 mGy-cm. COMPARISON: CT abdomen pelvis 12/31/2020 FINDINGS: No acute findings at the lung bases. Small hiatus hernia in the lower mediastinum with mild wall thickening of distal esophagus suggesting possible esophagitis. No focal lesions of liver and spleen. Multiple calcified gallstones are noted in the gallbladder. Gallbladder is mildly distended in size. No edema gallbladder wall. Extrahepatic bile ducts are normal in size. Pancreas and pancreatic duct are normal. Kidneys do not show calculi are obstruction. Severe calcific atherosclerotic changes of abdominal aorta and iliac arteries. No inflammatory changes in the pelvis. Appendix is not distinctly visible. No fluid collections or herniations the pelvis. Severe multilevel degenerative disc disease of thoracolumbar discs. Scoliosis. IMPRESSION: 1. Calcified gallstones in the gallbladder. Mildly distended gallbladder without edema gallbladder wall. 2. Bile ducts are normal in size. Pancreas shows no acute findings. 3. Other nonemergent findings are described above. Reviewed, dictated and finalized at location T. TION ENGINEER IMPRESSION: 1. Calcified gallstones in the gallbladder. Mildly distended gallbladder withou t edema gallbladder wall. 2. Bile ducts are normal in size. Pancreas shows no acute findings. 3. Other nonemergent findings are described above.
[2025-07-19 14:51] VITALS: BP 155/102; PULSE 98; RESP 18; TEMP 36.6; O2SAT 100
[2025-07-19] MEDS: ONDANSETRON INJ 4 MG/2 ML VIAL IV PUSH (16:04)
[2025-07-19 16:11] LABS: Hematocrit 46.7 % (37.0-47.0); Hemoglobin 15.4 g/dL (12.0-15.0); Immature Granulocyte Percent A 0.2 % (0-0.5); Lymphocytes Absolute Auto 1.57 K/mm3 (0.9-3.2); Mean Corpuscular HGB Conc 33.0 g/dl (32-36); Mean Corpuscular Hemoglobin 31.8 pg (26-34); Mean Corpuscular Volume 96.3 fl (80-100); Nucleated Red Blood Cells Absolute Auto 0.000 K/mm3 (0.0-0.012); Nucleated Red Blood Cells Perc 0.0 % (0.0-0.2); Platelet Count Result 616 k/mm3 (150-375); Red Blood Count 4.85 M/mm3 (4.2-5.4); White Blood Count 9.1 K/mm3 (4.5-10.0)
[2025-07-19 16:44] LABS: Alanine Aminotransferase 28 U/L (6-35); Albumin Level 5.3 g/dL (3.5-5.1); Alkaline Phosphatase 94 U/L (38-126); Anion Gap 11 mmol/L (4-12); Aspartate Amino Transferase 61 U/L (14-36); Bilirubin,Total 1.2 mg/dL (0.2-1.3); Blood Urea Nitrogen 35 mg/dL (7-17); Calcium 10.7 mg/dL (8.4-10.2); Carbon Dioxide 36 mmol/L (22-30); Chloride 89 mmol/L (98-107); Estimated Glomerular Filt Rate 52; Glucose 112 mg/dL (65-110); Lipase 371 U/L (23-300); Potassium 3.3 mmol/L (3.4-5.0); Sodium 136 mmol/L (137-145); Total Protein 10.6 g/dL (6.3-8.2)
[2025-07-19] MEDS: LACTATED RINGERS 1,000 ML 999 ML IV CONT (17:20)
[2025-07-19] MEDS: METOCLOPRAMIDE HCL INJ 10 MG/2 ML VIAL IV PUSH (17:34)
[2025-07-19] MEDS: POTASSIUM CHLORIDE 20 MEQ PACKET (FOR LIQUID) PO (17:34)
[2025-07-19 18:22] VITALS: BP 132/70; PULSE 71; RESP 16; O2SAT 100
[2025-07-19 19:22] LABS: Add Urine Microscopic? YES; Appearance Urine Clear (Clear); Glucose Urine UA Negative (Negative); Leukocyte Esterase Ur Negative LEU/UL (Negative); Need Manual Microscopic Reviewed; Nitrate Urine Negative (Negative); Non Pathogenic Casts 0-2; Specific Grav Ur > 1.045 (1.001-1.035)
--- OUTSIDE RECORDS SUMMARY | 2025-07-19 19:40 | XMS_ITS | Clinical Summary ---
[facility] Address [address] [place] [address] Care Team Providers Care Breaker Table Worker Name Role Phone Yulissa Young MD Primary Care Provider [phone] Allergies No known active allergies Medications atorvastatin (LIPITOR) 10 mg tablet TAKE 1 TABLET BY MOUTH EVERY DAY 1 Active hydroCHLOROthiazide 25 mg tablet TAKE 1 TABLET BY MOUTH EVERY DAY 1 Active metoprolol succinate (TOPROL XL) 50 mg Extended Release 24 hour tablet TAKE 1 TABLET BY MOUTH EVERY DAY 1 Active sertraline (ZOLOFT) 100 mg tablet TAKE 1 TABLET BY MOUTH EVERY DAY 1 Active omeprazole (PriLOSEC) 20 mg Capsule, Delayed Release(E.C.) TAKE ONE CAPSULE BY MOUTH ONCE DAILY 30 MINUTES TO 1 HOUR BEFORE A MEAL 1 Active ondansetron (ZOFRAN ODT) 4 mg Tablet, Rapid Dissolve Take 1 Tablet (4 mg) by mouth every 8 hours as needed for Nausea/Emesi s. Dissolve tablet on top of tongue, then swallow with saliva. 20 Tablet 3 Active allopurinoL (ZYLOPRIM) 300 mg tabletIndications:E ssential thrombocytosis (CMS/HCC),Iron deficiency anemia, unspecified iron deficiency anemia type Take 1 Tablet (300 mg) by mouth daily. 90 Tablet 1 5 Active hydroxyurea (HYDREA) 500 mg capsuleIndications: Essential thrombocytosis (CMS/HCC) Take 1 Capsule (500 mg) by mouth daily. 90 Capsule 3 5 Active losartan (COZAAR) 25 mg tablet 5 Active Active Problems Problem Noted Date Diagnosed Date Essential thrombocytosis 11/06/2022 Iron deficiency anemia 12/26/2020 Encounters Date Type Department Care Team Description 06/13/2025 Orders Only [facility] [place] [address] [place] [address] Frederick Cavazos MD 06/09/2025 11:30 AM CDT Office Visit [facility] On[facility] H[facility]ology [place] [address] [place] [address] Frederick Cavazos MD Essential thrombocytosis (CMS/HCC) (Primary Dx); Iron deficiency anemia, unspecified iron deficiency anemia type 05/31/2025 External Device Data STL ABSTRACTION Provider, Abstract 05/30/2025 External Device Data STL ABSTRACTION Provider, Abstract 05/02/2025 External Device Data STL ABSTRACTION Provider, Abstract 04/25/2025 External Device Data STL ABSTRACTION Provider, Abstract from Last 3 Months Family History Medical History Relation Name Comments Heart Disease Brother Heart Disease Father Heart Disease Mother Relation Name Status Comments Brother Daughter Alive Father Mother Sister Alive Social History Tobacco Use Types Packs/Day Years Used Date Smoking Tobacco: Never Smokeless Tobacco: Never Tobacco Cessation:Counseling Given: Not Answered Alcohol Use Standard Drinks/Week Comments Not Currently 0 (1 standard drink = 0.6 oz pur e alcohol) Comments Unknown Sex and Gender Information Value Date Recorded Sex Assigned at Not on file Legal Sex Female 1:49 PM CDT Gender Identity Not on file Sexual Orientation Not on file Last Filed Vital Signs Vital Sign Reading Time Taken Comments Blood Pressure 106/89 06/09/2025 11:16 AM CDT Pulse 77 06/09/2025 11:16 AM CDT Temperature 34.4 C (94 F) 06/09/2025 11:16 AM CDT Respiratory Rate 15 06/09/2025 11:16 AM CDT Oxygen Saturation 97% 06/09/2025 11:16 AM CDT Inhaled Oxygen Concentration - - Weight 40 kg (88 lb 3.2 oz) 06/09/2025 11:16 AM CDT Height 144.8 cm (4' 9) 05/12/2022 1:02 PM CDT Body Mass Index 19.09 05/12/2022 1:02 PM CDT Plan of Treatment Upcoming Encounters Date Type Department Care Team (Late st Contact Info) Description 09/20/2025 3:45 PM AIRCRAFT INSTRUMENT TESTER Office Visit [facility] Oncology and Hematology - [place] [address] [facility] [address] [place] [address] Frederick Cavazos MD [address] [facility] [address] [place] [address] Health Maintenance Due Date Last Done Comments DTAP/TDAP/TD VACCINES (1 - Tdap) 02/23/1972 COLORECTAL SCREENING 1998 Colorectal Cancer Screening 1998 FIT-DNA Q 3 years 1998 FIT/FOBT Q 1 year 1998 Flex Sig/CT Colonography Q 5 years 1998 PNEUMOCOCCAL VACCINE 50+ YEARS (1 of 1 - PCV) 02/23/20 03 ZOSTER VACCINE (1 of 2) 2003 OSTEOPOROSIS SCREENING 2018 BREAST CANCER SCREENING 10/07/2024 10/08/2023 INFLUENZA VACCINE (#1) 2025 RSV VACCINE (60+ or ) (1 - 1-dose 75+ series) 02/23/2028 Procedures Procedure Name Priority Date/Time Associated Diagnosis Comments CBC WITH AUTODIFFERENTIAL Routine 2024 12:25 PM CDT MAMMO SCREENING BILAT Routine 10/08/2023 11:18 AM AIRCRAFT INSTRUMENT TESTER from Last 3 Months or Most Recently Relevant to Health Maintenance Results * CBC WITH AUTODIFFERENTIAL (06/09/2025 12:25 PM CDT) Blood us Frederick Cavazos MD HEMATOLOGY ORDERABLES Final Res ult * MAMMO SCREENING BILAT (10/08/2023 11:18 AM AIRCRAFT INSTRUMENT TESTER) Anatomical Region Laterality Modality Breast Bilateral Mammography us Frederick Cavazos MD MAMMO ORDERABLES Final Result from Last 3 Months or Most Recently Relevant to Health Maintenance Insurance AET[employer] O MCR Care Teams Breaker Table Worker Relationship Specialty Start Date End Date Yulissa Young MD [address] [place] [id number] PCP - General Family Practice 12/26/20
--- OUTSIDE RECORDS SUMMARY | 2025-07-19 19:40 | XMS_ITS | Clinical Summary ---
Author Organization [facility] Address [address] [facility] [place] [address] Care Team Providers Care Quantitative Consultant Name Role Phone Pcp, None Primary Care Provider Unavailabl e Source Comments [facility],non-owned Affiliates and Associated Physician Practices is amultiple site organization consisting of ambulatory clinics and hospital sitesin [place], [place], [place] and [place]. This disclosure is being madepursuant to the Care Everywhere program and may not contain all information available regarding this patient. Last updated 18.[facility] Allergies Active Allergy Reactions Criticality Noted Date [...] 2003 ZOSTER VACCINE (1 of 2) 2003 DEPRESSION SCREENING 08/10/2024 MEDICARE AWV CALENDAR YEAR 2024 COVID-19 VACCINE (1 - 2024-2 6 season) 2025 INFLUENZA VACCINE (#1) 2025 MAMMOGRAM 10/07/2025 10/08/2023 [...] topic Insurance [employer] MEDICARE ADV Care Teams Quantitative Consultant Relationship Specialty Start Date End Date Pcp, None [address] [place] [address] PCP - General 03/10/24
--- NOTE | 2025-07-19 19:41 | ED.NAVMDI ---
HPI - Nausea/Vomiting/Diarrhea General Chief complaint: Nausea/Vomiting/Diarrhea Stated complaint: vomiting Time Seen by Provider: 07/19/25 15:54 History of Present Illness HPI Narrative: History presents here with vomiting, has been ongoing for last 2 days, unable to keep anything down, also having some lower abdominal pain with. Related Data Home Medications ?Medication ?Instructions ?Recorded ?Confirmed ?Last Taken ?Type allopurinol 300 mg tablet mg PO 03/30/25 03/30/25 Unknown History hydroxyurea 500 mg capsule PO 03/30/25 03/30/25 Unknown History Allergies Allergy/AdvReac Type Severity Reaction Status Date / Time lisinopril Allergy Unknown cough Verified 07/19/25 14:47 rosuvastatin Allergy Unknown leg pain Verified 07/19/25 14:47 iron (From Venofer) AdvReac Severe Chest Pain Verified 07/19/25 14:47 hydrocodone AdvReac Mild Vomiting Verified 07/19/25 14:47 Review of Systems Review of Systems: All systems reviewed & are unremarkable except as noted in HPI and below PMFSH Past Medical History Medical History Lumbar spondylosis Insomnia SUHA-2 gene mutation Vitamin D deficiency Alopecia Osteoporosis Irritable bowel syndrome with predominant constipation Anemia Chronic hip pain IBS (irritable bowel syndrome) Normal colonoscopy (~2018) Depression Hypertension HLD (hyperlipidemia) Surgical History Surgical History H/O: hysterectomy Family History Family History Father Hypertension Family history of diabetes mellitus in first degree relative Family history of hearing loss Patient's father is Mother Hypertension Patient's mother is Grandparent Asthma Sibling Patient's sister is in good health Patient's brother is in good health Other Cerebrovascular accident Family history of cardiovascular disease Family history of seizure disorder Social History Social History Smoking status: Never smoker Second hand tobacco smoke exposure: No Alcohol intake: never Substance use: never Substance use type: does not use Lack of Transportation: No Lack of Food: Never True Current Housing: I Have Housing Concerned About Future Housing: No Difficulty Paying Gas/Electric Bills: No Difficulty Paying for Meds: No Currently Unemployed: No Difficulty w/ Childcare or Family Care: No Living arrangements: with family Gender identity (if verbalized by the patient): Female Spiritual care concerns: No Agree to blood products: Yes Exam Narrative: EXAMINATION OF ORGAN SYSTEMS/BODY AREAS: Constitutional: Vital signs per nursing GENERAL:No acute distress, non-toxic appearing. HEAD: Normal with no signs of head trauma. EYES: EOMI, conjunctiva normal ENT: Hearing grossly intact LUNGS: Nonlabored breathing. HEART: Regular rate and rhythm ABD: Soft, very minimal tenderness lower abdomen EXT: Normal range of motion SKIN: No rashes or lesions. NEURO: Alert. No gross focal sensory or strength deficits. PSYCH: Normal affect Course Vital Signs Vital signs: Vital Signs Temperature 97.8 F 07/19/25 14:51 Pulse Rate 98 07/19/25 14:51 Respiratory Rate 18 07/19/25 14:51 Blood Pressure 155/102 H 07/19/25 14:51 Pulse Oximetry 100 07/19/25 14:51 Oxygen Delivery Room Air 07/19/25 14:51 Temperature 97.8 F 07/19/25 14:51 Pulse Rate 71 07/19/25 18:22 Respiratory Rate 16 07/19/25 18:22 Blood Pressure 132/70 07/19/25 18:22 Pulse Oximetry 100 07/19/25 18:22 Oxygen Delivery Room Air 07/19/25 14:51 MDM MDM Narrative Medical decision making narrative: Electronic medical record was reviewed. Patient presented to the ED with complaint of abdominal pain and vomiting ongoing for last few days. Vitals were within acceptable limits. Physical exam revealed soft abdomen with some very minimal tenderness to the lower abdomen. Based on the patient's history and physical exam, my differential includes but is not limited to gastritis, gastroenteritis, cholecystitis, pancreatitis, appendicitis, UTI. IV access was established by nursing staff. Patient was given zofran, famotidine. CBC, BMP, lipase, LFTs, bilirubin and alk phos were obtained. Labs were pertinent for low potassium which is repleted, slightly elevated BUN/creatinine likely from dehydration.. Decision was made to obtain a CT-abdomen to evaluate for acute abdominal process. CT-abdomen per radiology interpretation is unremarkable for acute intra-abdominal process, no signs of hydronephrosis, cholecystitis, appendicitis. On reevaluation, the patient states that they are feeling much better. There were no witnessed episodes of vomiting in the emergency department. They are not complaining of any new abdominal pain. Repeat examination did not show any significant guarding or rebound. No new tenderness. At this time I do not feel there is any further emergent treatment to be provided. The patient was given strict return precautions, if they are to develop any worsening abdominal pain, vomiting, or blood in the vomit they are to return to the emergency department immediately. Patient verbally acknowledges understanding these directions. The patient was informed of the above diagnostic test findings. No further workup is necessary at this time. They will be discharged home with prescriptions. They were advised to follow-up with their PCP in 2 days. The patient feels that this is appropriate medical decision making and verbalizes an understanding of the discharge instructions. Differential Diagnosis Differential Diagnosis: gastritis, gastroenteritis, cholecystitis, pancreatitis, appendicitis, UTI Lab Data 07/19/25 16:04 07/19/25 16:04 Labs: Lab Results 07/19/25 07/19/25 Range/Units 16:04 18:24 WBC 9.1 (4.5-10.0) K/mm3 RBC 4.85 (4.2-5.4) M/mm3 Hgb 15.4 H (12.0-15.0) g/dL Hct 46.7 (37.0-47.0) % MCV 96.3 (80-100) fl MCH 31.8 (26-34) pg MCHC 33.0 (32-36) g/dl RDW 13.6 (11.5-14.5) % Plt Count 616 H (150-375) k/mm3 MPV 9.6 (7.4-10.4) fl Immature Gran % (Auto) 0.2 (0-0.5) % Neut % (Auto) 73.9 H (45.5-73.1) % Lymph % (Auto) 17.3 L (18.3-44.2) % [place] % (Auto) 7.6 (2.6-8.5) % Eos % (Auto) 0.2 (0-4.4) % Baso % (Auto) 0.8 (0.2-1.2) % Lymph # (Auto) 1.57 (0.9-3.2) K/mm3 [place] # (Auto) 0.7 H (0.1-0.6) K/mm3 Eos # (Auto) 0.0 (0-0.3) K/mm3 Baso # (Auto) 0.1 (0.0-0.1) K/mm3 Abs Immat Gran (auto) 0.02 (0.00-0.031) K/mm3 Absolute Neuts (auto) 6.7 (1.3-6.7) K/mm3 Absolute Nucleated RBC 0.000 (0.0-0.012) K/mm3 Nucleated RBC % 0.0 (0.0-0.2) % Sodium 136 L (137-145) mmol/L Potassium 3.3 L (3.4-5.0) mmol/L Chloride 89 L (98-107) mmol/L Carbon Dioxide 36 H (22-30) mmol/L Anion Gap 11 (4-12) mmol/L BUN 35 H D (7-17) mg/dL Creatinine 1.04 H (0.7-1.0) mg/dL Estim Creat Clear Calc Not Reportable Estimated GFR 52 L (59 - ) Glucose 112 H (65-110) mg/dL Lactic Acid 1.5 (0.7-2.0) mmol/L Calcium 10.7 H (8.4-10.2) mg/dL Total Bilirubin 1.2 (0.2-1.3) mg/dL AST 61 H (14-36) U/L ALT 28 (6-35) U/L Alkaline Phosphatase 94 (38-126) U/L Total Protein 10.6 H (6.3-8.2) g/dL Albumin 5.3 H (3.5-5.1) g/dL Lipase 371 H (23-300) U/L Urine Color Yellow (Yellow) Urine Appearance Clear (Clear) Urine pH 7.0 (5.0-9.0) Ur Specific [place] > 1.045 H (1.001-1.035) Urine Protein Trace (Negative) mg/dL Urine Glucose (UA) Negative (Negative) mg/dL Urine Ketones 1+ H (Negative) mg/dL Ur Blood (Man) Negative (Negative) Urine Nitrate Negative (Negative) Urine Bilirubin Negative (Negative) Urine Urobilinogen 1.0 (<2.0) mg/dL Add Ur Microanalysis Reviewed Leukocyte Esterase Rfl Negative (Negative) TABBY/UL Urine RBC 0-2 (0-2) /hpf Urine WBC 0-5 (0-3) /hpf Ur Squamous Epith Cells None seen (Few) /hpf Urine Bacteria None seen /hpf Urine Casts 0-2 Imaging Data Radiologist's impression: ITS Impressions Abdomen/Pelvis CT 07/19/25 17:11 IMPRESSION: 1. Calcified gallstones in the gallbladder. Mildly distended gallbladder without edema gallbladder wall. 2. Bile ducts are normal in size. Pancreas shows no acute findings. 3. Other nonemergent findings are described above. Discharge Plan Discharge Clinical Impression: Nausea and vomiting Patient Disposition: Home Condition: Stable Instructions: Acute Nausea and Vomiting (ED) Additional Instructions: Please follow up with your doctor; try the meds as prescribed and you can always return for any further issues. Patient Language: Norwegian Prescriptions: New ondansetron 4 mg tablet,disintegrating 4 mg PO Q8H PRN (Reason: nausea and vomiting) Qty: 10 0RF No Action ferrous sulfate 325 mg (65 mg iron) tablet 325 mg PO TID Qty: 90 0RF mecobalamin (vitamin B12) 500 mcg tablet,chewable 500 mcg PO DAILY Qty: 30 0RF oxycodone 5 mg tablet 5 mg PO Q6H PRN (Reason: pain) Qty: 40 0RF hydroxyurea 500 mg capsule PO allopurinol 300 mg tablet PO methylprednisolone [Medrol (Juan Antonio)] 4 mg tablets,dose pack See Rx Instructions PO .COMPLEX Qty: 21 0RF Rx Instructions: Take the entire day's dose as a single dose in the am. Example, day one, take all 6 tablets in the morning. Day 2, take all 5 in the morning. doxycycline hyclate 100 mg capsule 100 mg PO BID Qty: 20 0RF Rx Instructions: Hold iron supplement while taking atorvastatin 10 mg tablet See Rx Instructions .ROUTE .COMPLEX Qty: 90 3RF Dose Instruction: TAKE ONE TABLET BY MOUTH ONE TIME DAILY Rx Instructions: TAKE ONE TABLET BY MOUTH ONE TIME DAILY cyclobenzaprine 10 mg tablet 10 mg PO TID Qty: 60 1RF Linzess 290 mcg capsule 290 mcg PO DAILY Qty: 30 6RF metoprolol succinate 50 mg tablet extended release 24 hr See Rx Instructions .ROUTE .COMPLEX Qty: 90 3RF Dose Instruction: TAKE ONE TABLET BY MOUTH ONCE DAILY Rx Instructions: TAKE ONE TABLET BY MOUTH ONCE DAILY omeprazole 40 mg capsule,delayed release(DR/EC) See Rx Instructions .ROUTE .COMPLEX Qty: 90 4RF Dose Instruction: TAKE 1 CAPSULE BY MOUTH EVERY DAY Rx Instructions: TAKE 1 CAPSULE BY MOUTH EVERY DAY trazodone 100 mg tablet See Rx Instructions .ROUTE .COMPLEX Qty: 135 3RF Dose Instruction: TAKE ONE AND ONE-HALF TABLETS BY MOUTH EVERY NIGHT AT BEDTIME Rx Instructions: TAKE ONE AND ONE-HALF TABLETS BY MOUTH EVERY NIGHT AT BEDTIME tramadol 50 mg tablet 50 mg PO Q6H PRN (Reason: pain) Qty: 90 0RF losartan 25 mg tablet See Rx Instructions .ROUTE .COMPLEX Qty: 90 2RF Dose Instruction: TAKE 1 TABLET BY MOUTH DAILY Rx Instructions: TAKE 1 TABLET BY MOUTH DAILY sertraline 100 mg tablet 150 mg PO DAILY Qty: 135 1RF Follow-up/Referrals: Ellie Bishop PA-C [Primary Care Provider, Family Practice]
--- OUTSIDE RECORDS SUMMARY | 2025-07-19 20:52 | XMS_ITS | Clinical Summary ---
Author Organization [facility] Address [address] [place] [address] Care Team Providers Care Early Childhood Education Coordinator Name Role Phone Pcp, None Primary Care Provider Unavailabl e Source Comments [facility],non-owned Affiliates and Associated Physician Practices is amultiple site organization consisting of ambulatory clinics and hospital sitesin [place], [place], [place] and [place]. This disclosure is being madepursuant to the Care Everywhere program and may not contain all information available regarding this patient. Last updated 18.[facility] Allergies Active Allergy Reactions Criticality Noted Date [...] topic Insurance [employer] MEDICARE ADV Care Teams Early Childhood Education Coordinator Relationship Specialty Start Date End Date Pcp, None [address] [place] [address] PCP - General 03/10/24
--- OUTSIDE RECORDS SUMMARY | 2025-07-19 20:52 | XMS_ITS | Clinical Summary ---
[facility] Address [address] [place] [address] Care Team Providers Care Meat And Poultry Inspector Name Role Phone Yulissa Young MD Primary Care Provider [phone] Allergies No known active allergies Medications atorvastatin [...] Care Team Description 06/13/2025 Orders Only [facility] Hematology [place] [address] [place] [address] Frederick Cavazos MD 06/09/2025 11:30 AM CDT Office Visit [facility] On[facility] and Hematology [place] [address] [place] [address] Frederick Cavazos MD Essential thrombocytosis (CMS/HCC) (Primary [...] st Contact Info) Description 09/20/2025 3:45 PM PALEOLOGY TEACHER Office Visit [facility] Oncology and Hematology - [place] [address] [facility] [address] [place] [address] Frederick Cavazos MD [address] [facility] [address] [place] [address] Health Maintenance Due Date Last [...] MAMMO SCREENING BILAT Routine 10/08/2023 11:18 AM PALEOLOGY TEACHER from Last 3 Months or Most Recently Relevant to Health Maintenance Results * CBC WITH AUTODIFFERENTIAL (06/09/2025 12:25 PM CDT) Blood us Frederick Cavazos MD HEMATOLOGY ORDERABLES Final Res ult * MAMMO SCREENING BILAT (10/08/2023 11:18 AM PALEOLOGY TEACHER) Anatomical Region Laterality Modality Breast Bilateral Mammography us Frederick Cavazos MD MAMMO ORDERABLES Final Result from Last 3 Months or Most Recently Relevant to Health Maintenance Insurance AETNA O MCR Care Teams Meat And Poultry Inspector Relationship Specialty Start Date End Date Yulissa Young MD [address] [place] [id number] PCP - General Family Practice 12/26/20
== END 2025-07-19 19:05 | disposition home or self-care (01) ==
PROVIDERS: Emergency Provider Emergency Medicine; PCP Student in an Organized Health Care Education/Training Program
DX: R11.2 Nausea with vomiting, unspecified (principal); M81.0 Age-related osteoporosis without current pathological fracture; E55.9 Vitamin D deficiency, unspecified; I10 Essential (primary) hypertension; E78.5 Hyperlipidemia, unspecified
CPT/HCPCS: 36415; 74177; 80053; 81001; 83605; 83690; 85025; 96361; 96374; 96375; 99284; A9270; J2405; J2765; J7120; Q9967